=== PATIENT | male | born 1985 | race Caucasian/White ===

== ENCOUNTER 2017-11-10 04:10 | Emergency (ER) | payer BC ==
[~2017-11-10] VITALS: Ht 182.9 cm; Wt 82.6 kg
[2017-11-10] MEDS ORDERED: ONDANSETRON IV *ER 4 MG/2 ML VIAL IV ONE (05:14)
[2017-11-10] MEDS ORDERED: PANTOPRAZOLE SODIUM 40 MG VIAL IV ONE (05:15)
[2017-11-10] MEDS ORDERED: IV NS 1000 ML 1,000 ML IV ONE (05:15)
[2017-11-10] MEDS ORDERED: PANTOPRAZOLE SODIUM 40 MG VIAL ONE (05:27)
[2017-11-10] MEDS ORDERED: ONDANSETRON 4 MG/2 ML VIAL ONE (05:27)
[2017-11-10 05:44] LABS: BASOPHILS # (AUTO) 0.1 K/uL (0.0-8.0); BASOPHILS % (AUTO) 1.4 % (0.0-2.0); EOSINOPHILS # (AUTO) 0.5 K/uL (0.0-0.7); EOSINOPHILS % (AUTO) 5.7 % (0.0-7.0); HEMATOCRIT 43.7 % (36.7-47.1); HEMOGLOBIN 15.2 g/dL (12.5-16.3); LYMPHOCYTES # (AUTO) 3.2 K/uL (20.0-40.0); LYMPHOCYTES % (AUTO) 39.2 % (20.5-51.5); MEAN CORPUSCULAR HGB CONC 35 g/dL (32.5-36.3); MONOCYTES # (AUTO) 0.7 K/uL (2.0-10.0); MONOCYTES % (AUTO) 8.8 % (0.0-11.0); NEUTROPHILS # (AUTO) 3.7 K/uL (1.8-8.9); NEUTROPHILS % (AUTO) 44.9 % (38.5-71.5); PLATELET COUNT (AUTO) 228 K/uL (152-348); RED BLOOD CELL COUNT(AUTO) 4.74 MIL/uL (4.06-5.63); WHITE BLOOD COUNT (AUTO) 8.1 K/uL (3.6-10.2)
[2017-11-10 05:53] LABS: CREATININE 0.9 mg/dL (0.6-1.3); POTASSIUM 3.7 mmol/L (3.5-5.1)
[2017-11-10 05:59] LABS: BILIRUBIN,TOTAL 0.4 mg/dL (0.2-1.0); TOTAL PROTEIN, SERUM 7.1 g/dL (6.4-8.2)
--- NOTE | 2017-11-10 06:15 | NUR ---
PATIENT REFUSED CT SCAN. DR CUMMINS AWARE
[2017-11-10] MEDS ORDERED: IOHEXOL 300MG/ML 100 ML INFUS..BTL ONE (06:16)
[2017-11-10] MEDS ORDERED: SWABABLE VALVE TRANSFER SET EA MC ONE (06:16)
[2017-11-10] MEDS ORDERED: IV NORMAL SALINE 250 ML IV ONE (06:16)
[2017-11-10] MEDS ORDERED: NORMAL SALINE FLUSH 10 ML DISP.SYRIN ONE (06:16)
--- NOTE | 2017-11-10 06:29 | NUR ---
IV removed. Catheter intact and site benign. Pressure and 4x4 gauze applied to site. No bleeding noted.
[2017-11-10 06:35] VITALS: BP 120/77
--- NOTE | 2017-11-10 06:36 | NUR ---
Patient discharged to home in stable conditon. Written and verbal after care instructions given. Patient verbalizes understanding of instructions. WALKED OUT OF ER WITH STEADY GAIT. NO DISTRESS NOTED
[2017-11-10 06:40] LABS: *BILIRUBIN,URIN NEGATIVE (NEGATIVE); *BLOOD, URINE Trace-intact (NEGATIVE); *CLARITY,URINE CLEAR (CLEAR); *COLOR,URINE YELLOW (YELLOW); *KETONES,URINE NEGATIVE (NEGATIVE); *PROTEIN,URINE NEGATIVE (NEGATIVE); *UROBILINOGEN,URINE 0.2 E.U./dl (NORMAL); LEUKOCYTE ESTERASE ,URINE NEGATIVE (NEGATIVE); NITRITE, URINE NEGATIVE (NEGATIVE); UGLUCOSE NEGATIVE (NEGATIVE)
[2017-11-10 06:59] LABS: BACTERIA,URINE FEW /HPF (NONE SEEN); RBC,URINE NONE SEEN /HPF (0-3); SQUAMOUS EPITHELIAL CELL,UR FEW /HPF (NONE SEEN); WBC,URINE 0-3 /HPF (0-3)
== END 2017-11-10 06:36 | disposition home or self-care (01) ==
LOC: ER 04:17
DX: R10.84 Generalized abdominal pain (principal); F17.200 Nicotine dependence, unspecified, uncomplicated
CPT/HCPCS: 36415; 80053; 81001; 83690; 85025; 96374; 96375; 99284; A4663; C9113; J2405; J3490; J7030; J7050; Q9967